=== PATIENT | female | born 1985 | race Caucasian/White ===

== ENCOUNTER 2018-09-16 08:01 | Inpatient (IN) ==
[2018-09-16] MEDS ORDERED: OXYTOCIN 30 UNITS/500 ML BAG IV PRN (08:12)
[2018-09-16] MEDS ORDERED: LACTATED RINGER'S 1,000 ML IV PRN (08:12)
[2018-09-16 08:34] LABS: Hematocrit (blood only) 33.1 % (37-47); Mean Corpuscular Volume 97.6 fL (80-100); Mean Platelet Volume 10.9 fL (7.4-10.4); Platelet Count 265 K/uL (130-400); RDW Coefficient of Variation 12.6 % (11.5-14.5); RDW Standard Deviation 44.3 fL (36.4-46.3); Red Blood Count 3.39 M/uL (4.2-5.4); White Blood Count 11.08 K/uL (4.8-10.8)
[2018-09-16 08:43] LABS: Mean Corpuscular Hgb Conc 33.2 g/dL (32-36)
[2018-09-16] MEDS ORDERED: miSOPROStol 25 MCG TAB PV STA (08:50)
[2018-09-16] MEDS ORDERED: DINOPROSTONE 10 MG INSERT PV ONE (08:55)
--- NOTE | 2018-09-16 08:55 | Obstetrical Progress Note ---
Date of Service September 16, 2018 Physical Exam Physical Exam: Admit Note 33 F P0000 at 36.4 weeks admitted for IOL for cholestasis of . Cervix finger tip/25/-3/vertex/posterior/firm/intact. FHT Cat 1. GBS is negative. Will start induction with Cervidil 10 mg for cervical ripening.
--- NOTE | 2018-09-16 21:47 | Obstetrical Progress Note ---
Date of Service September 16, 2018 Physical Exam Physical Exam: Cervidil pulled out. Cervix is finger tip/thick/-3. FHT Cat 1. Will allow to eat and shower. Cytotec 25 mcg planned for midnight. Results & Data Vital Signs (Past 12 Hours) Vital Signs Temp Pulse Resp BP 09/16/18 20:15 18 09/16/18 19:45 18 09/16/18 19:30 36.6 C 77 20 136/73 09/16/18 18:27 18 09/16/18 16:50 20 09/16/18 16:30 16 09/16/18 15:00 36.6 C 83 20 125/68 09/16/18 14:31 36.7 C 80 20 126/72 09/16/18 12:49 36.6 C 92 H 16 109/63 09/16/18 11:05 36.5 C 81 20 107/58 L
[2018-09-17] MEDS: miSOPROStol 25 MCG TAB PO SCH ×4 (00:03→13:23)
--- NOTE | 2018-09-17 07:40 | Obstetrical Progress Note ---
Date of Service September 17, 2018 Subjective Patient is seen and examined Reviewed her chart, records from office Admitted by Dr. Ochoa yesterday for IOL for ICP Received 1 Cervidil, 2 Cytotecs PO Feels irregular ctxs, not very painful No LOF/VB +FM VSS Afebrile FHR categ I [place]: ctxs q 6-7 min VE; ft/ 30%/ -3, posterior, medium Offered her breakfast, declined Will continue with cervical ripening All questions were answered Results & Data Vital Signs (Past 12 Hours) Vital Signs Temp Pulse Resp BP 09/17/18 07:06 60 123/68 09/17/18 03:26 36.7 C 18 09/17/18 03:19 74 112/68 09/16/18 23:51 97 H 106/55 L 09/16/18 23:40 36.9 C 18 09/16/18 22:00 20 09/16/18 21:30 20 09/16/18 20:15 18 09/16/18 19:45 18
[2018-09-17] MEDS ORDERED: miSOPROStol 50 MCG TAB ONE (13:25)
[2018-09-17] MEDS: miSOPROStol 50 MCG TAB PO SCH ×2 (14:25→18:01)
[2018-09-17] MEDS ORDERED: BUTORPHANOL TARTRATE 2 MG/ML VIAL IV PRN (21:07)
[2018-09-17] MEDS ORDERED: ONDANSETRON INJ 2 MG/ML 2 ML VIAL IV PRN (21:07)
--- NOTE | 2018-09-17 21:12 | Obstetrical Progress Note ---
Date of Service September 17, 2018 Subjective Patient is reevaluated She has been painful for the last 2 hours, asking for pain medications Received 4th dose of PO Cytotec at 1810 No LOF/VB +FM VSS Afebrile VE; ft/ 50%/ -4, unable to feel presenting part Bed side US: Vertex, FHR 140's FHR 140's, categ I [place]: ctxs q 1-3 in Discussed pain management as IV/ epidural in details Desires to have IV pain meds and have dinner tonight before next dose of Cytotec Continue to monitor Results & Data Vital Signs (Past 12 Hours) Vital Signs Temp Pulse Resp BP 09/17/18 20:33 37.1 C 18 09/17/18 20:27 73 131/67 09/17/18 19:08 65 129/64 09/17/18 19:05 36.5 C 20 09/17/18 17:08 65 20 127/68 09/17/18 17:06 20 09/17/18 15:30 37.0 C 70 20 135/73 09/17/18 14:26 71 116/66 09/17/18 11:47 36.5 C 72 20 132/77 09/17/18 09:16 75 103/60
[2018-09-17] MEDS ORDERED: DINOPROSTONE 10 MG INSERT PV ONE (23:23)
[2018-09-18] MEDS ORDERED: FLUCONAZOLE 50 MG TAB PO ONE (00:52)
--- NOTE | 2018-09-18 00:56 | Obstetrical Progress Note ---
Date of Service September 18, 2018 Subjective Patient received Stadol for pain, slept for an hour or so and ate dinner and now ready for Cervidil Ctxs now spaced out, not painful anymore No LOF/VB +FM VE; abundant white d/c, c/w clementine, patient is sensitive during exam Cervidil is placed with abundant jel Plan to monitor Diflucan tb once Benadryl for itching and sleep Results & Data Vital Signs (Past 12 Hours) Vital Signs Temp Pulse Resp BP 09/18/18 00:35 81 116/68 09/17/18 20:33 37.1 C 18 09/17/18 20:27 73 131/67 09/17/18 19:08 65 129/64 09/17/18 19:05 36.5 C 20 09/17/18 17:08 65 20 127/68 09/17/18 17:06 20 09/17/18 15:30 37.0 C 70 20 135/73 09/17/18 14:26 71 116/66
[2018-09-18] MEDS: miSOPROStol 50 MCG TAB PO SCH (02:57)
[2018-09-18] MEDS: ACETAMINOPHEN 325 MG TAB PO PRN ×2 (06:13→19:04)
[2018-09-18] MEDS ORDERED: OXYTOCIN 30 UNITS/500 ML BAG IV PRN (13:19)
[2018-09-18] MEDS: LACTATED RINGER'S 1,000 ML IV SCH ×2 (14:54→20:04)
[2018-09-18] MEDS ORDERED: ePHEDrine sulfate 50 MG/ML AMP ONE (19:47)
[2018-09-18] MEDS ORDERED: BUPIVACAINE 0.25% 30 ML VIAL ONE (19:47)
[2018-09-18] MEDS ORDERED: fentaNYL 2MCG/ML ROPIV 1.25MG/ML 100 ML BAG EPI ONE (19:48)
[2018-09-18] MEDS ORDERED: fentaNYL citrate 100 MCG/2 ML VIAL ONE (19:48)
[2018-09-18] MEDS ORDERED: fentaNYL 2MCG/ML ROPIV 1.25MG/ML 100 ML BAG EPI PRN (19:57)
[2018-09-18] MEDS ORDERED: NALOXONE HCL 1 MG in SODIUM CHLORIDE 0.9% 1000ML 1,000 ML IV PRN (19:57)
[2018-09-18] MEDS ORDERED: ePHEDrine sulfate 50 MG/ML AMP IV PRN (19:57)
[2018-09-18] MEDS ORDERED: NALOXONE HCL 0.4 MG/1 ML VIAL/CARP IV PRN (19:57)
[2018-09-18] MEDS ORDERED: DiphenhydrAMINE HCL 50 MG/ML VIAL IV PRN (19:57)
[2018-09-18] MEDS ORDERED: ONDANSETRON INJ 2 MG/ML 2 ML VIAL IV PRN (19:57)
[2018-09-18] MEDS ORDERED: NALBUPHINE HCL INJ 10 MG/ML AMP IV PRN (19:57)
--- NOTE | 2018-09-18 20:04 | Anesthesiology Consultation ---
Date of Service September 18, 2018 Assessment & Plan (1) Encounter for pre-operative examination: Chart Review Chart Review: Patient NOT seen in Pre Admission Testing and Acceptable Risk for Labor Epidural Consults Requested none History Height/Weight Height: 4 ft 8 in Weight: 68.1 kg Allergies Allergy/AdvReac Type Severity Reaction Status Date / Time No Known Allergies Allergy Unverified 03/30/15 20:54 Medications Home Medications Medication Instructions Recorded Confirmed Last Taken magnesium oxide 400 mg PO HS 09/16/18 09/16/18 09/15/18 20:30 vit no.[id number] 1 tab PO DAILY 09/16/18 09/16/18 09/16/18 06:30 [ Vitamin] ranitidine HCl [Zantac] 150 mg PO BID 09/16/18 09/16/18 09/16/18 06:30 Active Medications Generic Name Dose Route Start Last Admin Trade Name Freq PRN Reason Stop Dose Admin Acetaminophen 650 mg 09/18/18 05:55 09/18/18 19:04 Tylenol PO 10/18/18 05:54 650 mg Q4H PRN Administration Headache or Pain Butorphanol Tartrate 1 mg 09/17/18 21:07 09/17/18 22:04 Stadol IV 10/17/18 21:06 1 mg Q3H PRN Administration Pain Oxytocin 30 units in 500 mls @ 8 mls/hr 09/18/18 13:19 09/18/18 18:57 Pitocin IV 09/20/18 13:18 0.48 units/hr .Q24H PRN 8 mls/hr Labor Induction/Augmentation Titration Protocol 0.48 UNITS/HR Lactated Ringer's 1,000 mls @ 125 mls/hr 09/18/18 14:15 09/18/18 20:04 Lr IV 10/18/18 14:14 125 mls/hr .Q8H PASCUAL Administration Past Medical History Medical History TRACEY (generalized anxiety disorder) (~01/02/17) H/O scarlet fever (~09/27/02) H/O wisdom tooth extraction (~09/16/18) HPV (human papilloma virus) infection (~03/12/18) Left ovarian cyst (~03/23/18) Exercise / Class Metabolic Activity II 4-5 Yardwork/Stairs/Walk up hill Past Family History Family History Mother Small cell lung cancer Father Emphysema of lung Mother Hypertension Sister Hypertension Mother Hypothyroid Father Degenerative disc disease Past Anesthesia History No Hx of Anesthesia Complications and No Family Hx of Anesthesia Complications History of PONV No Hx of PONV and No Hx of Motion Sickness Social History Smoking Status: Never smoker Do You Dip or Chew Tobacco: No Hx Alcohol Use: No Hx Substance Use: No Physical Exam Vital Signs Last Vital Signs Temp 36.8 C 09/18/18 14:47 Pulse 61 09/18/18 19:52 Resp 18 09/18/18 18:52 BP 135/81 09/18/18 19:52 Testing Laboratory Results 09/16/18 08:19
[2018-09-19] MEDS: LACTATED RINGER'S 1,000 ML IV SCH ×3 (01:45→14:40)
[2018-09-19] MEDS ORDERED: LACTATED RINGER'S 1,000 ML IV SCH ×2 (02:15→03:15)
--- NOTE | 2018-09-19 02:27 | History and Physical Report ---
DATE OF ADMISSION: 09/16/2018 CHIEF COMPLAINT: Itching, elevated bile acids, intrauterine at 37 weeks 1 day, failed induction. HISTORY OF PRESENT ILLNESS: The patient is a 33-year-old 1, para 0, well dated with an early ultrasound, due date 10/09/2018. She came into the office with symptoms of generalized itching, had elevated bile acids at 19. Was brought in on for induction of labor. She basically received the maximum allowable doses of p.o. Cytotec, which consisted of 5 doses. According to hospital protocol, we are not allowed to give any more than 5 doses. After the 5 doses, she received a Cervidil tape for 12 hours and then was started on IV Pitocin. Despite these efforts and despite the fact that the induction went on for 4 days, they were unable to get the cervix to dilate. At the time of , presenting part was floating. Cervix was posterior, firm, closed. ALLERGIES: No known drug allergies. PAST SURGICAL HISTORY: Had a wisdom teeth removed. PAST MEDICAL HISTORY: No history of rheumatic fever, heart disease, diabetes, tuberculosis. History of elevated bile acid. SOCIAL HISTORY: No smoking. No alcohol intake. 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 FAMILY HISTORY: Mom at age 57 of lung cancer. Father 60, has emphysema. One younger sister in good health. REVIEW OF SYSTEMS: HEAD: No symptoms of frequent or severe headaches. EYES: No symptoms of blurred vision or double vision. EARS: No symptoms of frequent ear infections or difficulty hearing. NOSE: No symptoms of frequent nosebleeds, difficulty breathing through her nose. PHYSICAL EXAMINATION: GENERAL: Well-developed, well-nourished, 33-year-old white female, alert, oriented x3 and cooperative in no acute distress, appears her stated age. EYES: Conjunctivae are pink. Sclerae white. No evidence of jaundice. EARS: Had normal light reflex bilaterally. NOSE: Had normal mucosa. Septum is midline. There were no polyps. THROAT: Had no erythema or evidence of infection. Teeth are in good state of repair. HEAD: Normocephalic, normal distribution of hair. NECK: Supple. Trachea midline. Thyroid was not enlarged. There was no adenopathy appreciated. Both carotids are of good intensity. CHEST: Clear to auscultation and percussion. No wheezes, rales or rhonchi appreciated. HEART: Had a regular rhythm. S1 and S2 were normal. ABDOMEN: Consistent with a 37-week gestational size fetus. No CVA tenderness. PELVIC: Vertex, floating. Cervix posterior, closed, uneffaced. MUSCULOSKELETAL: Revealed no calf tenderness. IMPRESSIONS OF THIS CASE: Elevated bile acids, intrauterine at 37 weeks 1 day, failed induction.
[2018-09-19] MEDS ORDERED: cefOXitin 2,000 MG in DEXTROSE 5% 50 ML IV ONE (02:30)
[2018-09-19] MEDS ORDERED: CITRIC ACID/SODIUM CITRATE 15 ML UDC PO ONE (02:30)
[2018-09-19 03:02] LABS: Basophils # (auto) 0.02 K/uL (0-0.2); Basophils % (auto) 0.1 %; Eosinophils # (auto) 0.01 K/uL (0-0.5); Eosinophils % (auto) 0.1 %; Hematocrit (blood only) 37.8 % (37-47); Hemoglobin 13.3 g/dL (12.0-16.0); Immature Granulocytes # (auto) 0.08 K/uL (0.00-0.02); Immature Granulocytes % (auto) 0.6 %; Lymphocytes # (auto) 2.86 K/uL (1.2-3.4); Lymphocytes % (auto) 20.2 %; Mean Corpuscular Volume 95.7 fL (80-100); Mean Platelet Volume 10.8 fL (7.4-10.4); Monocytes # (auto) 0.95 K/uL (0.11-0.59); Monocytes % (auto) 6.7 %; Neutrophils # (auto) 10.22 K/uL (1.4-6.5); Neutrophils % (auto) 72.3 %; Platelet Count 299 K/uL (130-400); RDW Coefficient of Variation 12.3 % (11.5-14.5); RDW Standard Deviation 42.9 fL (36.4-46.3); Red Blood Count 3.95 M/uL (4.2-5.4); White Blood Count 14.14 K/uL (4.8-10.8)
[2018-09-19 03:09] LABS: Mean Corpuscular Hgb Conc 35.2 g/dL (32-36)
[2018-09-19] MEDS ORDERED: OXYTOCIN 10 UNITS/ML VIAL ONE (03:13)
[2018-09-19] MEDS ORDERED: LIDOCAINE/EPINEPHRINE 2% 1:200,000 20 ML SDV ONE (03:15)
[2018-09-19] MEDS ORDERED: ONDANSETRON INJ 2 MG/ML 2 ML VIAL ONE (03:15)
[2018-09-19] MEDS ORDERED: PHENYLEPHRINE 100MCG/ML 5ML SYR ONE (03:20)
[2018-09-19] MEDS ORDERED: MoRPHine SULFATE PF 1 MG/ML 10 ML AMP/VIAL ONE (03:26)
[2018-09-19] MEDS ORDERED: MoRPHine SULFATE PF 1 MG/ML 10 ML AMP/VIAL EPI ONE (03:35)
[2018-09-19] MEDS ORDERED: MEPERIDINE HCL 25 MG/ML CARP IV PRN (03:35)
[2018-09-19] MEDS ORDERED: ePHEDrine sulfate 50 MG/ML AMP IV PRN (03:35)
[2018-09-19] MEDS ORDERED: NALOXONE HCL 0.08 MG in SYRINGE 1.8 ML IV PRN (03:35)
[2018-09-19] MEDS ORDERED: NALBUPHINE HCL INJ 10 MG/ML AMP IV PRN (03:35)
[2018-09-19] MEDS ORDERED: LACTATED RINGER'S 500 ML IV PRN (03:35)
[2018-09-19] MEDS ORDERED: MoRPHine SULFATE 2 MG/ML CARP IV PRN (03:35)
[2018-09-19] MEDS ORDERED: NALOXONE HCL 1 MG in SODIUM CHLORIDE 0.9% 1000ML 1,000 ML IV PRN (03:35)
[2018-09-19] MEDS ORDERED: DiphenhydrAMINE HCL 50 MG/ML VIAL IV PRN ×2 (03:35→21:35)
[2018-09-19] MEDS ORDERED: ONDANSETRON INJ 2 MG/ML 2 ML VIAL IV PRN ×2 (03:35→21:35)
[2018-09-19] MEDS ORDERED: NALOXONE HCL 0.4 MG/1 ML VIAL/CARP IV PRN (03:35)
[2018-09-19] MEDS ORDERED: SODIUM CHLORIDE 0.9% 1000ML 1,000 ML IV SCH (03:45)
[2018-09-19] MEDS ORDERED: NO NARCOTICS OR SEDATIVES SCH (03:45)
[2018-09-19] MEDS ORDERED: SUPERCREAM 0.870% 15 GM JAR EXT PRN (03:51)
[2018-09-19] MEDS ORDERED: SENNA 8.6 MG TAB PO PRN (03:51)
[2018-09-19] MEDS ORDERED: BENZOCAINE 20% AER SPR 82.5 GM CAN EXT PRN (03:51)
[2018-09-19] MEDS ORDERED: MAGNESIUM HYDROXIDE SUSP 30 ML UDC PO PRN (03:51)
[2018-09-19] MEDS ORDERED: DIPHTHERIA/TETANUS/PERTUSSIS 0.5 ML SYR/VIAL IM ONE (03:51)
[2018-09-19] MEDS ORDERED: HYDROCORTISONE ACETATE 25 MG SUPP PR PRN (03:51)
--- NOTE | 2018-09-19 03:58 | Post Operative Brief Note ---
Immediate Post Op Note v1 Date of Surgery September 19, 2018 Pre & Post Diagnosis Operation Date: 09/19/18 02:20 Pre-Op Diagnosis: Primary for failed induction of labor Post-Op Diagnosis: Same trunchal cord x1 compound presentation Procedure Operation Date: 09/19/18 02:20 Actual Procedures p Section in LD(Bilateral) - Yariel Mejia MD Surgeon Yariel Mejia MD [facility] none Estimated Blood Loss 500 Findings Consistent with Post-Op Diagnosis Fluids 1500 ml Specimens placenta Drains Oliver Catheter (oliver placed prior to arrival to OR, Oliver draining clear yellow urine and to be monitored by Anesthesia during procedure ) Anesthesia Type MAC Epidural Complications none Disposition Accompanied Patient To Recovery: No Disposition: Recovery Room
--- NOTE | 2018-09-19 04:04 | Anesthesia Procedure Note ---
Date of Service September 19, 2018 Anesthesia Post Epidural Note Vital Signs Vital Signs: Temp Pulse Resp BP Pulse Ox 36.8 C 78 18 110/52 L 96 09/18/18 23:46 09/19/18 04:02 09/18/18 20:31 09/19/18 03:59 09/19/18 04:02 Pain Intensity Bilateral Abdomen: Pain Intensity: 1 Notes Mental Status: alert / awake / arousable Patient Amnestic to Procedure: No Nausea / Vomiting: adequately controlled Pain: adequately controlled Airway Patency, RR, SpO2: stable & adequate BP & HR: stable & adequate Hydration State: stable & adequate Neuraxial Anesthesia: was administered and sensory block is resolving Anesthetic Complications: no major complications apparent and Pt Satisfied with anesthetic care Epidural: Removed without complications and With tip intact
--- NOTE | 2018-09-19 04:04 | Anesthesiology Progress Note ---
Date of Service September 19, 2018 Anesthesia Post Procedure Vital Signs Vital Signs: Temp Pulse Resp BP Pulse Ox 09/19/18 04:02 78 96 09/19/18 04:01 74 93 09/19/18 03:59 77 110/52 L 09/19/18 02:38 76 100 09/19/18 02:33 69 100 09/19/18 02:28 65 100 09/19/18 02:26 67 137/72 09/19/18 02:23 70 100 09/19/18 02:18 88 99 09/19/18 02:15 86 90 09/19/18 02:13 84 78 L 09/19/18 02:10 92 H 134/92 09/19/18 02:09 78 89 L 09/19/18 02:08 83 100 09/19/18 02:03 74 98 09/19/18 01:58 70 96 09/19/18 01:56 74 133/81 09/19/18 01:53 67 100 09/19/18 01:48 72 100 09/19/18 01:43 64 100 09/19/18 01:41 67 141/71 H 09/19/18 01:38 64 100 09/19/18 01:33 62 98 09/19/18 01:28 70 100 09/19/18 01:25 60 144/71 H 09/19/18 01:23 75 100 09/19/18 01:18 70 100 09/19/18 01:13 69 98 09/19/18 01:10 76 131/82 09/19/18 01:08 73 95 09/19/18 01:03 74 95 09/19/18 00:58 63 97 09/19/18 00:56 66 133/79 09/19/18 00:53 60 98 09/19/18 00:48 66 98 09/19/18 00:43 59 L 98 09/19/18 00:40 57 L 128/70 09/19/18 00:38 65 97 09/19/18 00:33 72 96 09/19/18 00:28 64 96 09/19/18 00:25 61 125/65 09/19/18 00:23 66 97 09/19/18 00:18 70 97 09/19/18 00:13 75 98 09/19/18 00:11 65 131/66 09/19/18 00:08 69 98 09/19/18 00:03 63 97 09/18/18 23:58 65 97 09/18/18 23:56 59 L 115/62 09/18/18 23:53 62 97 09/18/18 23:48 62 99 09/18/18 23:46 36.8 C 09/18/18 23:43 78 97 09/18/18 23:41 65 127/68 09/18/18 23:38 64 97 09/18/18 23:33 63 97 09/18/18 23:28 62 98 09/18/18 23:25 59 L 115/61 09/18/18 23:23 60 97 09/18/18 23:18 67 98 09/18/18 23:13 64 98 09/18/18 23:08 73 98 09/18/18 23:03 67 99 09/18/18 22:58 63 97 09/18/18 22:55 59 L 123/72 09/18/18 22:53 60 98 09/18/18 22:48 60 98 09/18/18 22:43 62 98 09/18/18 22:40 58 L 137/74 09/18/18 22:38 70 98 09/18/18 22:33 60 97 09/18/18 22:28 68 98 09/18/18 22:26 63 135/76 09/18/18 22:23 66 97 09/18/18 22:18 65 97 09/18/18 22:13 64 97 09/18/18 22:12 69 146/77 H 09/18/18 22:08 61 96 09/18/18 22:03 63 96 09/18/18 21:58 61 96 09/18/18 21:55 57 L 131/73 09/18/18 21:53 60 96 09/18/18 21:48 59 L 96 09/18/18 21:43 59 L 97 09/18/18 21:40 57 L 122/69 09/18/18 21:38 59 L 100 09/18/18 21:33 62 96 09/18/18 21:28 60 98 09/18/18 21:25 65 119/70 09/18/18 21:23 69 99 09/18/18 21:18 64 99 09/18/18 21:13 65 100 09/18/18 21:11 60 121/73 09/18/18 21:08 61 100 09/18/18 21:03 61 100 09/18/18 20:58 64 100 09/18/18 20:55 59 L 122/67 09/18/18 20:53 63 100 09/18/18 20:48 58 L 99 09/18/18 20:43 65 100 09/18/18 20:39 69 126/67 09/18/18 20:38 65 100 09/18/18 20:36 82 133/76 09/18/18 20:33 74 131/76 100 09/18/18 20:31 36.8 C 18 09/18/18 20:30 70 126/72 09/18/18 20:28 75 100 09/18/18 20:27 82 122/72 09/18/18 20:24 88 132/69 09/18/18 20:23 75 100 09/18/18 20:21 89 147/72 H 09/18/18 20:18 73 162/89 H 100 09/18/18 20:13 89 100 09/18/18 20:12 83 165/97 H 09/18/18 20:08 72 100 09/18/18 20:03 68 100 09/18/18 19:52 61 135/81 09/18/18 18:52 92 H 18 137/83 09/18/18 17:51 81 18 123/96 09/18/18 16:51 65 18 135/76 09/18/18 15:51 68 18 121/68 09/18/18 14:47 36.8 C 16 09/18/18 14:46 73 124/74 09/18/18 13:50 86 20 121/75 09/18/18 11:08 36.7 C 57 L 16 124/70 09/18/18 10:00 36.9 C 18 09/18/18 09:45 77 127/72 09/18/18 08:02 36.8 C 82 18 110/65 Pain Intensity Bilateral Abdomen: Pain Intensity: 1 Transfer of Care Handoff Completed per policy Notes Mental Status: alert / awake / arousable Patient Amnestic to Procedure: No Nausea / Vomiting: adequately controlled Pain: adequately controlled Airway Patency, RR, SpO2: stable & adequate BP & HR: stable & adequate Hydration State: stable & adequate Neuraxial Anesthesia: was administered and sensory block is resolving Anesthetic Complications: no major complications apparent and Pt Satisfied with anesthetic care
--- NOTE | 2018-09-19 04:07 | Operative Report ---
DATE OF OPERATION: 09/19/2018 PROCEDURE: Primary low segment section. INDICATIONS FOR SURGERY: Elevated bile acids, failed induction. PREOPERATIVE DIAGNOSIS: Failed induction. POSTOPERATIVE DIAGNOSIS: Truncal cord x1 compound presentation. SURGEON: Katelynn Mejia MD ESTIMATED BLOOD LOSS: 500 mL. ANESTHESIA: Epidural. OPERATIVE FINDINGS AND PROCEDURE: The patient was brought to the OR table, correctly identified by armband and conversation. Catheter had been inserted aseptically in the bladder, connected to gravity drainage. Compression stockings were applied. The epidural anesthesia was topped off. Lower abdomen was painted with an alcohol-based sterilizing solution, draped in the usual sterile fashion. Once the level of anesthesia was found to be adequate, Pfannenstiel incision was made, carried down to the anterior fascia by sharp dissection. Hemostasis was secured by electrocauterization. Fascia was incised transversely, from the underlying muscle by blunt and sharp dissection. Recti muscles were in the midline exposing the peritoneum which was carefully raised and entered. Lower uterine segment was exposed with a retractor. An incision was made above the vesicouterine fold. The bladder was undermined bluntly and pushed out of the operative field. Lower uterine segment was scored with a knife and entered with the scissors. Clear amnionic fluid was seen at this time. A vectis retractor was applied to the head and along with the head, a foot presented itself. We were able to deliver the head and deliver the body. The cord was cut and clamped and the infant was attended to by the coal sampler Dr. Rocha, who was scrubbed and present at the time of delivery. Cord blood was taken. The placenta was removed manually. Uterus, tubes, and ovaries were brought out through the incision. Uterine cavity was cleansed with a clean sponge. Ten units of Pitocin was injected directly into the myometrium. The myometrium was approximated with continuous interlocking suture of chromic catgut. The fascial layer was approximated over this with heavy Vicryl and this covered up the myometrial approximation. Hemostasis was excellent. Peritoneum was restored with a continuous 3-0 chromic. Uterus, tubes, and ovaries were inspected and found to be normal. The pelvis was cleansed of all blood clots and debris. Uterus, tubes, and ovaries were then reinserted into the abdominal cavity. A careful approximation of the anterior abdominal wall was performed. Peritoneum was closed with a mattress suture of chromic catgut. Recti muscles were approximated with interrupted [id number] suture of chromic catgut. The fascia was closed with continuous interlocking suture of Vicryl on each side and tied in the midline. SubQ was approximated with a running plain. The skin edges were approximated with staple clips. The patient tolerated the procedure well and left the OR in good condition. I attest to the content of the Intraoperative Record and any orders documented therein. Any exception s are noted below.
[2018-09-19] MEDS: KETOROLAC 30 MG/ML VIAL IV PRN ×3 (04:18→21:01)
[2018-09-19] MEDS: OXYTOCIN 20 UNITS in LACTATED RINGER'S 1,000 ML IV SCH ×3 (04:33→15:49)
[2018-09-19] MEDS ORDERED: METHYLERGONOVINE MALEATE 0.2 MG/ML AMP ONE (06:54)
[2018-09-19] MEDS ORDERED: KETOROLAC 30 MG/ML VIAL IV PRN ×2 (06:55→21:35)
[2018-09-19] MEDS ORDERED: BISACODYL 10 MG SUPP PR PRN (06:55)
[2018-09-19] MEDS ORDERED: MEPERIDINE HCL 50 MG/ML CARP IV PRN ×2 (06:55→21:35)
[2018-09-19] MEDS ORDERED: miSOPROStol 200 MCG TAB ONE (06:55)
[2018-09-19] MEDS ORDERED: CARBOPROST TROMETHAMINE 250 MCG/ML AMPUL ONE (07:05)
[2018-09-19] MEDS ORDERED: CARBOPROST TROMETHAMINE 250 MCG/ML AMPUL IM STA (07:20)
[2018-09-19] MEDS ORDERED: METHYLERGONOVINE MALEATE 0.2 MG/ML AMP IM STA (07:20)
[2018-09-19] MEDS ORDERED: miSOPROStol 200 MCG TAB PR STA (07:20)
[2018-09-19] MEDS: SIMETHICONE 80 MG CHEW PO SCH ×3 (08:37→18:48)
[2018-09-19] MEDS: FERROUS SULFATE 325 MG TAB PO SCH (08:37)
[2018-09-19] MEDS: DOCUSATE SODIUM 100 MG CAP PO SCH (08:37)
[2018-09-19] MEDS: PRENATAL VITAMIN 1 TAB PO SCH (08:37)
[2018-09-19 15:10] LABS: Hematocrit (blood only) 21.7 % (37-47); Hemoglobin 7.7 g/dL (12.0-16.0)
[2018-09-19] MEDS ORDERED: SODIUM CHLORIDE 0.9% 250 ML IV PRN ×2 (15:59→16:23)
[2018-09-19] MEDS ORDERED: ZOLPIDEM TARTRATE 5 MG TAB PO PRN (21:34)
[2018-09-19] MEDS ORDERED: PROMETHAZINE HCL 25 MG in SODIUM CHLORIDE 0.9% 50 ML IV PRN (21:35)
[2018-09-19] MEDS ORDERED: DC INTRASPINAL MORPHINE SCH (21:35)
[2018-09-20] MEDS: OXYTOCIN 20 UNITS in LACTATED RINGER'S 1,000 ML IV SCH (00:09)
[2018-09-20 01:17] LABS: Hematocrit (blood only) 28.6 % (37-47)
[2018-09-20] MEDS: IBUPROFEN 600 MG TAB PO PRN ×5 (02:56→23:43)
[2018-09-20] MEDS: OXYCODONE/ACETAMINOPHEN 5mg/325mg TAB PO PRN ×5 (02:57→23:43)
[2018-09-20 06:28] LABS: Basophils # (auto) 0.01 K/uL (0-0.2); Basophils % (auto) 0.1 %; Eosinophils # (auto) 0.04 K/uL (0-0.5); Eosinophils % (auto) 0.3 %; Hematocrit (blood only) 27.8 % (37-47); Hemoglobin 9.7 g/dL (12.0-16.0); Immature Granulocytes # (auto) 0.06 K/uL (0.00-0.02); Immature Granulocytes % (auto) 0.5 %; Lymphocytes # (auto) 1.67 K/uL (1.2-3.4); Lymphocytes % (auto) 13.6 %; Mean Corpuscular Hgb Conc 34.9 g/dL (32-36); Mean Corpuscular Volume 91.1 fL (80-100); Mean Platelet Volume 10.5 fL (7.4-10.4); Monocytes # (auto) 0.84 K/uL (0.11-0.59); Monocytes % (auto) 6.8 %; Neutrophils # (auto) 9.65 K/uL (1.4-6.5); Neutrophils % (auto) 78.7 %; Platelet Count 161 K/uL (130-400); RDW Coefficient of Variation 13.1 % (11.5-14.5); RDW Standard Deviation 44.1 fL (36.4-46.3); Red Blood Count 3.05 M/uL (4.2-5.4); White Blood Count 12.27 K/uL (4.8-10.8)
--- NOTE | 2018-09-20 07:09 | Anesthesiology Progress Note ---
Date of Service September 20, 2018 Anesthesia Post Procedure Vital Signs Vital Signs: Temp Pulse Pulse Resp BP BP Pulse Ox 09/20/18 04:18 90 96 09/20/18 04:13 89 96 09/20/18 04:08 90 95 09/20/18 04:03 94 H 96 09/20/18 03:58 36.8 C 94 H 18 110/59 L 96 09/20/18 03:53 84 96 09/20/18 03:48 78 96 09/20/18 03:43 84 96 09/20/18 03:38 81 97 09/20/18 03:33 80 96 09/20/18 03:28 84 96 09/20/18 03:23 81 96 09/20/18 03:18 83 95 09/20/18 03:13 78 97 09/20/18 03:08 80 96 09/20/18 03:03 84 95 09/20/18 02:58 82 96 09/20/18 02:53 93 H 96 09/20/18 02:48 90 97 09/20/18 02:43 85 97 09/20/18 02:38 79 96 09/20/18 02:33 74 96 09/20/18 02:28 85 97 09/20/18 02:23 76 96 09/20/18 02:18 70 97 09/20/18 02:13 73 97 09/20/18 02:08 74 96 09/20/18 02:03 87 97 09/20/18 02:00 84 127/65 09/20/18 01:58 80 96 09/20/18 01:53 98 H 97 09/20/18 01:48 89 98 09/20/18 01:43 86 97 09/20/18 01:38 89 97 09/20/18 01:33 106 H 96 09/20/18 01:28 84 95 09/20/18 01:23 79 96 09/20/18 01:18 91 H 95 09/20/18 01:13 88 97 09/20/18 01:08 89 96 09/20/18 01:03 92 H 92 09/20/18 00:58 96 H 140/70 96 09/20/18 00:53 86 94 09/20/18 00:48 84 95 09/20/18 00:43 88 94 09/20/18 00:38 87 95 09/20/18 00:33 85 95 09/20/18 00:28 88 94 09/20/18 00:23 100 H 97 09/20/18 00:18 89 95 09/20/18 00:13 112 H 96 09/20/18 00:08 96 H 97 09/20/18 00:03 97 H 97 09/19/18 23:58 102 H 131/80 94 09/19/18 23:57 113 H 90 09/19/18 23:53 96 H 124/86 96 09/19/18 23:48 98 H 123/76 96 09/19/18 23:45 36.8 C 98 H 18 123/76 96 09/19/18 23:43 87 94 09/19/18 23:42 85 112/67 09/19/18 23:38 83 95 09/19/18 23:37 90 120/75 09/19/18 23:33 88 115/67 95 09/19/18 23:28 86 95 09/19/18 23:27 89 141/75 H 09/19/18 23:23 91 H 96 09/19/18 23:22 105 H 145/77 H 09/19/18 23:18 85 95 09/19/18 23:17 90 138/78 09/19/18 23:15 36.8 C 90 18 138/78 95 09/19/18 23:13 86 95 09/19/18 23:12 91 H 131/75 09/19/18 23:08 88 96 09/19/18 23:07 91 H 133/77 09/19/18 23:03 92 H 140/79 95 09/19/18 22:58 101 H 133/62 96 09/19/18 22:53 90 139/72 96 09/19/18 22:48 94 H 142/88 H 97 09/19/18 22:45 36.8 C 101 H 18 136/61 96 09/19/18 22:43 101 H 136/61 96 09/19/18 22:38 96 H 141/65 H 96 09/19/18 22:34 98 H 143/72 H 09/19/18 22:33 110 H 96 09/19/18 22:28 107 H 98 09/19/18 22:23 121 H 98 09/19/18 22:17 91 H 138/81 09/19/18 22:16 94 H 97 09/19/18 22:15 36.4 C L 91 H 18 138/81 98 09/19/18 22:12 95 H 141/87 H 09/19/18 22:11 99 H 97 09/19/18 22:07 88 131/80 09/19/18 22:06 86 97 09/19/18 22:02 96 H 136/77 09/19/18 22:01 95 H 96 09/19/18 22:00 36.5 C 81 18 122/70 96 09/19/18 21:57 81 122/70 09/19/18 21:56 87 96 09/19/18 21:51 92 H 131/74 96 09/19/18 21:46 94 H 130/63 96 09/19/18 21:45 36.7 C 94 H 18 130/63 96 09/19/18 21:41 98 H 96 09/19/18 21:40 96 H 130/64 09/19/18 21:36 92 H 96 09/19/18 21:35 90 129/66 09/19/18 21:31 98 H 95 09/19/18 21:30 36.8 C 102 H 18 126/69 96 09/19/18 21:26 102 H 96 09/19/18 21:25 36.8 C 102 H 18 128/70 95 09/19/18 21:21 116 H 95 09/19/18 21:20 36.8 C 102 H 18 128/64 96 09/19/18 21:16 97 H 97 09/19/18 21:11 96 H 96 09/19/18 21:10 36.7 C 90 18 139/71 09/19/18 21:09 36.7 C 90 18 139/71 97 09/19/18 21:02 98 H 98 09/19/18 21:00 18 96 09/19/18 20:57 112 H 98 09/19/18 20:55 117 H 130/69 09/19/18 20:52 121 H 98 09/19/18 20:47 117 H 96 09/19/18 20:45 110 H 139/74 09/19/18 20:42 114 H 94 09/19/18 20:37 116 H 97 09/19/18 20:35 110 H 129/73 09/19/18 20:32 109 H 96 09/19/18 20:27 108 H 95 09/19/18 20:25 107 H 18 129/72 09/19/18 20:22 124 H 96 09/19/18 20:17 94 H 93 09/19/18 20:15 87 131/63 09/19/18 20:12 99 H 93 09/19/18 20:07 95 H 95 09/19/18 20:05 97 H 128/63 09/19/18 20:02 96 H 94 09/19/18 20:00 18 95 09/19/18 19:57 97 H 94 09/19/18 19:55 96 H 123/60 09/19/18 19:52 106 H 94 09/19/18 19:47 110 H 91 09/19/18 19:45 98 H 120/58 L 09/19/18 19:42 102 H 94 09/19/18 19:37 103 H 93 09/19/18 19:35 36.7 C 106 H 18 121/60 97 09/19/18 19:32 115 H 94 09/19/18 19:27 104 H 93 09/19/18 19:25 100 H 123/63 09/19/18 19:22 107 H 94 09/19/18 19:17 115 H 94 09/19/18 19:15 117 H 128/66 09/19/18 19:12 105 H 94 09/19/18 19:07 93 H 97 09/19/18 19:05 36.7 C 113 H 18 119/64 94 09/19/18 19:02 100 H 94 09/19/18 19:00 18 96 09/19/18 18:57 94 H 94 09/19/18 18:55 95 H 117/61 09/19/18 18:52 103 H 95 09/19/18 18:47 100 H 95 09/19/18 18:45 96 H 114/62 09/19/18 18:42 98 H 95 09/19/18 18:37 89 95 09/19/18 18:35 94 H 116/64 09/19/18 18:32 98 H 95 09/19/18 18:30 36.9 C 101 H 16 114/57 L 95 09/19/18 18:27 96 H 114/57 L 96 09/19/18 18:22 102 H 96 09/19/18 18:17 106 H 96 09/19/18 18:15 96 H 123/66 09/19/18 18:12 103 H 98 09/19/18 18:07 99 H 98 09/19/18 18:05 96 H 124/64 09/19/18 18:03 36.8 C 109 H 20 122/67 97 09/19/18 18:02 107 H 97 09/19/18 18:00 36.8 C 109 H 20 122/67 97 09/19/18 17:57 100 H 98 09/19/18 17:55 104 H 122/67 09/19/18 17:52 98 H 99 09/19/18 17:47 104 H 98 09/19/18 17:46 36.8 C 103 H 20 118/64 98 09/19/18 17:45 100 H 118/64 09/19/18 17:42 107 H 97 09/19/18 17:37 112 H 98 09/19/18 17:33 103 H 125/58 L 09/19/18 17:32 36.7 C 106 H 18 125/58 L 100 09/19/18 17:30 20 98 09/19/18 17:27 115 H 99 09/19/18 17:22 107 H 95 09/19/18 17:18 101 H 90 09/19/18 17:17 106 H 96 09/19/18 17:14 36.8 C 104 H 18 119/62 93 09/19/18 17:13 108 H 88 L 09/19/18 17:12 102 H 119/62 93 09/19/18 17:07 107 H 98 09/19/18 17:02 105 H 127/65 88 L 09/19/18 16:57 96 H 97 09/19/18 16:52 111 H 95 09/19/18 16:47 116 H 89 L 09/19/18 16:42 113 H 96 09/19/18 16:40 109 H 90 09/19/18 16:37 91 H 95 09/19/18 16:35 110 H 91 09/19/18 16:32 110 H 97 09/19/18 16:30 16 98 09/19/18 16:27 102 H 99 09/19/18 16:22 103 H 100 09/19/18 16:17 108 H 99 09/19/18 16:12 102 H 100 09/19/18 16:08 117 H 90 09/19/18 16:07 110 H 100 09/19/18 16:02 96 H 160/74 H 99 09/19/18 15:57 109 H 100 09/19/18 15:52 109 H 92 09/19/18 15:47 113 H 93 09/19/18 15:42 112 H 97 09/19/18 15:37 113 H 98 09/19/18 15:32 105 H 100 09/19/18 15:30 20 17 L 09/19/18 15:27 87 100 09/19/18 15:22 91 H 100 09/19/18 15:17 108 H 100 09/19/18 15:12 84 100 09/19/18 15:07 121 H 99 09/19/18 15:02 117 H 16 135/71 100 09/19/18 14:57 91 H 97 09/19/18 14:52 82 99 09/19/18 14:50 91 H 88 L 09/19/18 14:47 89 97 09/19/18 14:42 94 H 98 09/19/18 14:37 95 H 97 09/19/18 14:32 83 20 96 09/19/18 14:30 18 98 09/19/18 14:27 103 H 97 09/19/18 14:22 83 97 09/19/18 14:19 86 91 09/19/18 14:17 87 95 09/19/18 14:12 91 H 95 09/19/18 14:07 95 H 98 09/19/18 14:02 36.7 C 91 H 18 109/59 L 99 09/19/18 13:57 95 H 95 09/19/18 13:52 89 94 09/19/18 13:47 97 H 94 09/19/18 13:42 92 H 95 09/19/18 13:37 102 H 95 09/19/18 13:32 96 H 94 09/19/18 13:30 18 95 09/19/18 13:27 104 H 18 94 09/19/18 13:22 103 H 93 09/19/18 13:17 98 H 95 09/19/18 13:12 111 H 93 09/19/18 13:07 94 H 94 09/19/18 13:02 92 H 20 123/67 94 09/19/18 12:57 102 H 95 09/19/18 12:52 100 H 95 09/19/18 12:47 103 H 97 09/19/18 12:42 108 H 95 09/19/18 12:39 20 99 09/19/18 12:37 99 H 94 09/19/18 12:32 96 H 95 09/19/18 12:27 100 H 94 09/19/18 12:22 101 H 94 09/19/18 12:17 102 H 93 09/19/18 12:12 101 H 95 09/19/18 12:07 102 H 93 09/19/18 12:02 106 H 95 09/19/18 12:00 90 125/59 L 09/19/18 11:57 93 H 93 09/19/18 11:52 92 H 94 09/19/18 11:50 88 128/64 09/19/18 11:47 88 94 09/19/18 11:42 86 94 09/19/18 11:40 88 118/58 L 09/19/18 11:37 89 93 09/19/18 11:32 89 95 09/19/18 11:30 88 20 128/65 99 09/19/18 11:27 89 94 09/19/18 11:22 87 94 09/19/18 11:20 88 130/67 09/19/18 11:17 85 93 09/19/18 11:12 93 H 94 09/19/18 11:10 92 H 124/66 09/19/18 11:07 89 93 09/19/18 11:02 87 94 09/19/18 11:00 88 125/60 09/19/18 10:57 100 H 95 09/19/18 10:55 104 H 91 09/19/18 10:53 96 H 126/60 09/19/18 10:52 99 H 94 09/19/18 10:50 88 125/58 L 09/19/18 10:47 100 H 94 09/19/18 10:42 108 H 93 09/19/18 10:40 88 123/69 09/19/18 10:37 83 97 09/19/18 10:32 90 94 09/19/18 10:30 86 20 138/66 99 09/19/18 10:27 90 97 09/19/18 10:22 91 H 96 09/19/18 10:20 82 141/69 H 09/19/18 10:17 79 95 09/19/18 10:12 83 99 09/19/18 10:10 82 136/70 09/19/18 10:07 81 94 09/19/18 10:02 79 96 09/19/18 10:00 78 18 127/66 98 09/19/18 09:57 84 93 09/19/18 09:52 81 100 09/19/18 09:50 74 139/79 09/19/18 09:47 76 97 09/19/18 09:42 77 96 09/19/18 09:40 89 144/78 H 09/19/18 09:37 78 97 09/19/18 09:32 78 97 09/19/18 09:31 20 99 09/19/18 09:30 85 130/75 09/19/18 09:27 80 95 09/19/18 09:22 90 96 09/19/18 09:20 80 20 136/74 91 09/19/18 09:17 85 98 09/19/18 09:12 80 98 09/19/18 09:10 81 137/73 09/19/18 09:07 84 97 09/19/18 09:02 77 97 09/19/18 09:00 86 18 128/74 96 09/19/18 08:57 88 89 L 09/19/18 08:52 106 H 88 L 09/19/18 08:51 99 H 89 L 09/19/18 08:50 80 18 133/75 09/19/18 08:47 85 94 09/19/18 08:42 90 94 09/19/18 08:40 103 H 125/66 09/19/18 08:37 91 H 95 09/19/18 08:32 89 94 09/19/18 08:31 87 128/63 09/19/18 08:27 90 96 09/19/18 08:22 84 95 09/19/18 08:20 90 16 131/58 L 09/19/18 08:17 91 H 95 09/19/18 08:12 86 125/58 L 96 09/19/18 08:08 09/19/18 08:07 97 H 94 09/19/18 08:02 94 H 96 09/19/18 08:00 36.5 C 86 99 H 18 126/58 L 126/58 L 95 09/19/18 07:57 86 95 09/19/18 07:52 85 95 09/19/18 07:50 84 18 130/59 L 09/19/18 07:47 90 95 09/19/18 07:42 84 96 09/19/18 07:40 81 129/60 09/19/18 07:37 85 98 09/19/18 07:32 89 96 09/19/18 07:30 88 17 130/60 09/19/18 07:27 93 H 97 09/19/18 07:22 106 H 97 09/19/18 07:20 106 H 15 143/67 H 09/19/18 07:17 108 H 97 09/19/18 07:12 117 H 100 09/19/18 07:10 127 H 157/78 H Pulse Ox 09/20/18 04:18 09/20/18 04:13 09/20/18 04:08 09/20/18 04:03 09/20/18 03:58 09/20/18 03:53 09/20/18 03:48 09/20/18 03:43 09/20/18 03:38 09/20/18 03:33 09/20/18 03:28 09/20/18 03:23 09/20/18 03:18 09/20/18 03:13 09/20/18 03:08 09/20/18 03:03 09/20/18 02:58 09/20/18 02:53 09/20/18 02:48 09/20/18 02:43 09/20/18 02:38 09/20/18 02:33 09/20/18 02:28 09/20/18 02:23 09/20/18 02:18 09/20/18 02:13 09/20/18 02:08 09/20/18 02:03 09/20/18 02:00 09/20/18 01:58 09/20/18 01:53 09/20/18 01:48 09/20/18 01:43 09/20/18 01:38 09/20/18 01:33 09/20/18 01:28 09/20/18 01:23 09/20/18 01:18 09/20/18 01:13 09/20/18 01:08 09/20/18 01:03 09/20/18 00:58 09/20/18 00:53 09/20/18 00:48 09/20/18 00:43 09/20/18 00:38 09/20/18 00:33 09/20/18 00:28 09/20/18 00:23 09/20/18 00:18 09/20/18 00:13 09/20/18 00:08 09/20/18 00:03 09/19/18 23:58 09/19/18 23:57 09/19/18 23:53 09/19/18 23:48 09/19/18 23:45 09/19/18 23:43 09/19/18 23:42 09/19/18 23:38 09/19/18 23:37 09/19/18 23:33 09/19/18 23:28 09/19/18 23:27 09/19/18 23:23 09/19/18 23:22 09/19/18 23:18 09/19/18 23:17 09/19/18 23:15 09/19/18 23:13 09/19/18 23:12 09/19/18 23:08 09/19/18 23:07 09/19/18 23:03 09/19/18 22:58 09/19/18 22:53 09/19/18 22:48 09/19/18 22:45 09/19/18 22:43 09/19/18 22:38 09/19/18 22:34 09/19/18 22:33 09/19/18 22:28 09/19/18 22:23 09/19/18 22:17 09/19/18 22:16 09/19/18 22:15 09/19/18 22:12 09/19/18 22:11 09/19/18 22:07 09/19/18 22:06 09/19/18 22:02 09/19/18 22:01 09/19/18 22:00 09/19/18 21:57 09/19/18 21:56 09/19/18 21:51 09/19/18 21:46 09/19/18 21:45 09/19/18 21:41 09/19/18 21:40 09/19/18 21:36 09/19/18 21:35 09/19/18 21:31 09/19/18 21:30 09/19/18 21:26 09/19/18 21:25 09/19/18 21:21 09/19/18 21:20 09/19/18 21:16 09/19/18 21:11 09/19/18 21:10 09/19/18 21:09 09/19/18 21:02 09/19/18 21:00 09/19/18 20:57 09/19/18 20:55 09/19/18 20:52 09/19/18 20:47 09/19/18 20:45 09/19/18 20:42 09/19/18 20:37 09/19/18 20:35 09/19/18 20:32 09/19/18 20:27 09/19/18 20:25 09/19/18 20:22 09/19/18 20:17 09/19/18 20:15 09/19/18 20:12 09/19/18 20:07 09/19/18 20:05 09/19/18 20:02 09/19/18 20:00 09/19/18 19:57 09/19/18 19:55 09/19/18 19:52 09/19/18 19:47 09/19/18 19:45 09/19/18 19:42 09/19/18 19:37 09/19/18 19:35 09/19/18 19:32 09/19/18 19:27 09/19/18 19:25 09/19/18 19:22 09/19/18 19:17 09/19/18 19:15 09/19/18 19:12 09/19/18 19:07 09/19/18 19:05 09/19/18 19:02 09/19/18 19:00 09/19/18 18:57 09/19/18 18:55 09/19/18 18:52 09/19/18 18:47 09/19/18 18:45 09/19/18 18:42 09/19/18 18:37 09/19/18 18:35 09/19/18 18:32 09/19/18 18:30 09/19/18 18:27 09/19/18 18:22 09/19/18 18:17 09/19/18 18:15 09/19/18 18:12 09/19/18 18:07 09/19/18 18:05 09/19/18 18:03 09/19/18 18:02 09/19/18 18:00 09/19/18 17:57 09/19/18 17:55 09/19/18 17:52 09/19/18 17:47 09/19/18 17:46 09/19/18 17:45 09/19/18 17:42 09/19/18 17:37 09/19/18 17:33 09/19/18 17:32 09/19/18 17:30 09/19/18 17:27 09/19/18 17:22 09/19/18 17:18 09/19/18 17:17 09/19/18 17:14 09/19/18 17:13 09/19/18 17:12 09/19/18 17:07 09/19/18 17:02 09/19/18 16:57 09/19/18 16:52 09/19/18 16:47 09/19/18 16:42 09/19/18 16:40 09/19/18 16:37 09/19/18 16:35 09/19/18 16:32 09/19/18 16:30 09/19/18 16:27 09/19/18 16:22 09/19/18 16:17 09/19/18 16:12 09/19/18 16:08 09/19/18 16:07 09/19/18 16:02 09/19/18 15:57 09/19/18 15:52 09/19/18 15:47 09/19/18 15:42 09/19/18 15:37 09/19/18 15:32 09/19/18 15:30 09/19/18 15:27 09/19/18 15:22 09/19/18 15:17 09/19/18 15:12 09/19/18 15:07 09/19/18 15:02 09/19/18 14:57 09/19/18 14:52 09/19/18 14:50 09/19/18 14:47 09/19/18 14:42 09/19/18 14:37 09/19/18 14:32 09/19/18 14:30 09/19/18 14:27 09/19/18 14:22 09/19/18 14:19 09/19/18 14:17 09/19/18 14:12 09/19/18 14:07 09/19/18 14:02 09/19/18 13:57 09/19/18 13:52 09/19/18 13:47 09/19/18 13:42 09/19/18 13:37 09/19/18 13:32 09/19/18 13:30 09/19/18 13:27 09/19/18 13:22 09/19/18 13:17 09/19/18 13:12 09/19/18 13:07 09/19/18 13:02 09/19/18 12:57 09/19/18 12:52 09/19/18 12:47 09/19/18 12:42 09/19/18 12:39 09/19/18 12:37 09/19/18 12:32 09/19/18 12:27 09/19/18 12:22 09/19/18 12:17 09/19/18 12:12 09/19/18 12:07 09/19/18 12:02 09/19/18 12:00 09/19/18 11:57 09/19/18 11:52 09/19/18 11:50 09/19/18 11:47 09/19/18 11:42 09/19/18 11:40 09/19/18 11:37 09/19/18 11:32 09/19/18 11:30 09/19/18 11:27 09/19/18 11:22 09/19/18 11:20 09/19/18 11:17 09/19/18 11:12 09/19/18 11:10 09/19/18 11:07 09/19/18 11:02 09/19/18 11:00 09/19/18 10:57 09/19/18 10:55 09/19/18 10:53 09/19/18 10:52 09/19/18 10:50 09/19/18 10:47 09/19/18 10:42 09/19/18 10:40 09/19/18 10:37 09/19/18 10:32 09/19/18 10:30 09/19/18 10:27 09/19/18 10:22 09/19/18 10:20 09/19/18 10:17 09/19/18 10:12 09/19/18 10:10 09/19/18 10:07 09/19/18 10:02 09/19/18 10:00 09/19/18 09:57 09/19/18 09:52 09/19/18 09:50 09/19/18 09:47 09/19/18 09:42 09/19/18 09:40 09/19/18 09:37 09/19/18 09:32 09/19/18 09:31 09/19/18 09:30 09/19/18 09:27 09/19/18 09:22 09/19/18 09:20 09/19/18 09:17 09/19/18 09:12 09/19/18 09:10 09/19/18 09:07 09/19/18 09:02 09/19/18 09:00 09/19/18 08:57 09/19/18 08:52 09/19/18 08:51 09/19/18 08:50 09/19/18 08:47 09/19/18 08:42 09/19/18 08:40 09/19/18 08:37 09/19/18 08:32 09/19/18 08:31 09/19/18 08:27 09/19/18 08:22 09/19/18 08:20 09/19/18 08:17 09/19/18 08:12 09/19/18 08:08 96 09/19/18 08:07 09/19/18 08:02 96 09/19/18 08:00 09/19/18 07:57 09/19/18 07:52 09/19/18 07:50 09/19/18 07:47 09/19/18 07:42 09/19/18 07:40 09/19/18 07:37 09/19/18 07:32 09/19/18 07:30 09/19/18 07:27 09/19/18 07:22 09/19/18 07:20 09/19/18 07:17 09/19/18 07:12 09/19/18 07:10 Pain Intensity Bilateral Abdomen: Pain Intensity: 4 Lower Abdomen: Pain Intensity: 3 Transfer of Care Handoff Completed per policy Notes Mental Status: alert / awake / arousable Patient Amnestic to Procedure: Yes Nausea / Vomiting: adequately controlled Pain: adequately controlled Airway Patency, RR, SpO2: stable & adequate BP & HR: stable & adequate Hydration State: stable & adequate Anesthetic Complications: no major complications apparent and Pt Satisfied with anesthetic care
[2018-09-20] MEDS: LACTATED RINGER'S 1,000 ML IV SCH (07:31)
[2018-09-20] MEDS: SIMETHICONE 80 MG CHEW PO SCH ×5 (07:33→20:41)
[2018-09-20] MEDS: DOCUSATE SODIUM 100 MG CAP PO SCH ×3 (07:33→20:41)
[2018-09-20] MEDS: PRENATAL VITAMIN 1 TAB PO SCH (08:49)
[2018-09-20] MEDS: FERROUS SULFATE 325 MG TAB PO SCH (08:49)
[2018-09-20] MEDS ORDERED: BISACODYL 5 MG TABEC PO SCH (20:00)
[2018-09-21] MEDS ORDERED: BISACODYL 10 MG SUPP PR PRN (03:51)
[2018-09-21] MEDS: IBUPROFEN 600 MG TAB PO PRN ×5 (05:43→23:51)
[2018-09-21] MEDS: OXYCODONE/ACETAMINOPHEN 5mg/325mg TAB PO PRN ×5 (05:43→23:52)
[2018-09-21 07:17] LABS: Hematocrit (blood only) 28.1 % (37-47); Hemoglobin 9.8 g/dL (12.0-16.0)
[2018-09-21] MEDS: DOCUSATE SODIUM 100 MG CAP PO SCH ×2 (09:39→19:58)
[2018-09-21] MEDS: FERROUS SULFATE 325 MG TAB PO SCH ×2 (09:40→20:05)
[2018-09-21] MEDS: SIMETHICONE 80 MG CHEW PO SCH ×4 (09:40→19:58)
--- NOTE | 2018-09-21 10:02 | Obstetrical Progress Note ---
Date of Service September 21, 2018 Subjective Patient is seen and examined. She feels well, no complaints. Pain is under control with oral meds. Ambulating without dizziness Voiding without difficulty Tolerating regular diet with out N&V Flatus + BM neg Bleeding is minimal No fever/ chills/ CP/ SOB/ N&V/ Leg pain Breast and bottle feeding without problems Vital Signs Temp Pulse Resp BP Pulse Ox 09/20/18 23:35 36.5 C 87 16 118/79 96 09/20/18 19:45 37.3 C 76 16 116/75 96 09/20/18 15:51 36.9 C 87 18 114/65 96 09/20/18 12:15 36.9 C 82 18 122/74 97 09/21/18 Range/Units 07:02 Hgb 9.8 L (12.0-16.0) g/dL Hct 28.1 L (37-47) % PE: General: Alert, orientedx3, NAD CVS: S1S2 RRR Lungs; CTAB Abd: soft, NT, ND, BS+, fundus firm, below Umbilicus Incision/ Pepper: Clean, dry, intact Perineum intact, Lochia rubra minimal Ext; NT, no edema AP: 33 yo s/p C Section, pod# 2 VSS Afebrile doing well Continue routine postop care Encourage ambulation, PO intake All questions were answered D/C home tomorrow Results & Data Vital Signs (Past 12 Hours) Vital Signs Temp Pulse Resp BP Pulse Ox 09/20/18 23:35 36.5 C 87 16 118/79 96
[2018-09-22] MEDS: OXYCODONE/ACETAMINOPHEN 5mg/325mg TAB PO PRN ×2 (04:25→08:41)
[2018-09-22] MEDS: IBUPROFEN 600 MG TAB PO PRN ×2 (04:26→08:42)
[2018-09-22 06:30] LABS: Basophils # (auto) 0.02 K/uL (0-0.2); Basophils % (auto) 0.2 %; Eosinophils # (auto) 0.14 K/uL (0-0.5); Eosinophils % (auto) 1.4 %; Hematocrit (blood only) 31.6 % (37-47); Hemoglobin 10.8 g/dL (12.0-16.0); Immature Granulocytes # (auto) 0.09 K/uL (0.00-0.02); Immature Granulocytes % (auto) 0.9 %; Lymphocytes # (auto) 2.44 K/uL (1.2-3.4); Lymphocytes % (auto) 24.9 %; Mean Corpuscular Hgb Conc 34.2 g/dL (32-36); Mean Corpuscular Volume 95.8 fL (80-100); Mean Platelet Volume 10.3 fL (7.4-10.4); Monocytes # (auto) 0.66 K/uL (0.11-0.59); Monocytes % (auto) 6.7 %; Neutrophils # (auto) 6.44 K/uL (1.4-6.5); Neutrophils % (auto) 65.9 %; Platelet Count 253 K/uL (130-400); RDW Coefficient of Variation 13.5 % (11.5-14.5); RDW Standard Deviation 46.9 fL (36.4-46.3); White Blood Count 9.79 K/uL (4.8-10.8)
--- NOTE | 2018-09-22 08:08 | Surgery Progress Note ---
Date of Service September 22, 2018 Subjective doing well no pain out of bed and tolerating diet well Physical Exam Constitutional: WD/WN, vitals as above comfortable incision clean dry and intact abdomen soft fundus firm no edema neg Savana's for discharge Results & Data Vital Signs (Past 12 Hours) Vital Signs Temp Pulse Resp BP Pulse Ox 09/21/18 23:25 37 C 88 16 125/81 98 Laboratory Results all 09/16/18 09/19/18 09/19/18 08:19 02:49 02:49 WBC 11.08 H 14.14 H RBC 3.39 L 3.95 L Hgb 11.0 L 13.3 Hct 33.1 L 37.8 MCV 97.6 95.7 MCH 32.4 33.7 MCHC 33.2 35.2 RDW Std Deviation 44.3 42.9 RDW Coeff of Inez 12.6 12.3 Plt Count 265 299 MPV 10.9 H 10.8 H Immature Gran % (Auto) 0.6 Neut % (Auto) 72.3 Lymph % (Auto) 20.2 [place] % (Auto) 6.7 Eos % (Auto) 0.1 Baso % (Auto) 0.1 Immature Gran # (Auto) 0.08 H Neut # (Auto) 10.22 H Lymph # (Auto) 2.86 [place] # (Auto) 0.95 H Eos # (Auto) 0.01 Baso # (Auto) 0.02 Blood Type AB Positive Blood Type Recheck Antibody Screen NEGATIVE Crossmatch See Detail 09/19/18 09/19/18 09/20/18 14:44 14:44 01:05 WBC RBC Hgb 7.7 L D 10.0 L Hct 21.7 L 28.6 L MCV MCH MCHC RDW Std Deviation RDW Coeff of [place] Plt Count MPV Immature Gran % (Auto) Neut % (Auto) Lymph % (Auto) [place] % (Auto) Eos % (Auto) Baso % (Auto) Immature Gran # (Auto) Neut # (Auto) Lymph # (Auto) [place] # (Auto) Eos # (Auto) Baso # (Auto) Blood Type Blood Type Recheck AB Positive Antibody Screen Crossmatch 09/20/18 09/21/18 09/22/18 06:00 07:02 06:18 WBC 12.27 H 9.79 RBC 3.05 L 3.30 L Hgb 9.7 L 9.8 L 10.8 L Hct 27.8 L 28.1 L 31.6 L MCV 91.1 95.8 MCH 31.8 32.7 MCHC 34.9 34.2 RDW Std Deviation 44.1 46.9 H RDW Coeff of [place] 13.1 13.5 Plt Count 161 253 MPV 10.5 H 10.3 Immature Gran % (Auto) 0.5 0.9 Neut % (Auto) 78.7 65.9 Lymph % (Auto) 13.6 24.9 [place] % (Auto) 6.8 6.7 Eos % (Auto) 0.3 1.4 Baso % (Auto) 0.1 0.2 Immature Gran # (Auto) 0.06 H 0.09 H Neut # (Auto) 9.65 H 6.44 Lymph # (Auto) 1.67 2.44 [place] # (Auto) 0.84 H 0.66 H Eos # (Auto) 0.04 0.14 Baso # (Auto) 0.01 0.02 Blood Type Blood Type Recheck Antibody Screen Crossmatch
[2018-09-22] MEDS: PRENATAL VITAMIN 1 TAB PO SCH (08:41)
[2018-09-22] MEDS: DOCUSATE SODIUM 100 MG CAP PO SCH (08:41)
[2018-09-22] MEDS: FERROUS SULFATE 325 MG TAB PO SCH (08:41)
--- NOTE | 2018-10-02 02:41 | Discharge Summary ---
This patient was brought in for induction for elevated bile acids. I believe her bile acids were about 90. She has been followed by [facility] for care and delivery. She had complained of generalized itching. Studies had been performed and once a level of bile acids had been ascertained, she was admitted for induction. Attempted induction had lasted for over 3 days. She had maxed out on her p.o. doses of Cytotec. Apparently, the hospital has a policy that no patients to receive over 5 doses. She had 5 doses. Then, she had a vaginal tape. Then, we went to an epidural with rupture of membranes and Pitocin. We were unable to rupture membranes because her cervix was long, closed and posterior. After Pitocin failed to change the cervix at all, we basically called her failed induction and scheduled her for a repeat primary . At the time of , the presenting part was floating. Cervix was posterior, firm and closed. It should also be noted that the patient was 4 feet 8 inches tall. She was taken to the Operating Room where she underwent a primary low segment section. This was all done without difficulty with minimal bleeding. About an hour and a half postoperatively, she developed uterine atony and heavy bleeding. We had to give her uterotonic agents, but this included I.V. Pitocin, IM Methergine, rectal Cytotec and Hemabate. With these agents, her uterus contracted. The bleeding stopped; however, she did develop symptomatic anemia and was eventually given 2 units of packed cells. Her preoperative hemoglobin was 11. After she had the bleed and was symptomatic, her hemoglobin dropped to 7.7 with hematocrit of 21.7. At that time, we felt her hemoglobin was falling. Two units of blood later, her hemoglobin was up to 10 and hematocrit of 28.6. At the time of discharge, her hemoglobin was 10.8 and hematocrit of 31.6. Following the administration of blood while her symptoms subsided, her bowel sounds returned promptly and she was discharged to be followed in home and by [facility].
== END 2018-09-22 11:07 | disposition home or self-care (01) | DRG 786 ==
LOC: 4S1 08:01 → 4S2 09-20 12:23